=== PATIENT | female | born 1995 | race Caucasian/White ===

== ENCOUNTER 2020-11-12 20:10 | Emergency (ER) | payer OTHER ==
[2020-11-13] MEDS ORDERED: VISTARIL 25 MG25 MG PO (00:45)
== END 2020-11-13 01:03 | disposition home or self-care (01) ==
LOC: ER1 20:10
DX: F41.0 Panic disorder [episodic paroxysmal anxiety] (principal); I25.10 Atherosclerotic heart disease of native coronary artery without angina pectoris
CPT/HCPCS: 71045; 93005; 99283; Q0177